=== PATIENT | male | born 2005 | race Two or more races ===

== ENCOUNTER 2025-02-07 09:05 | Day surgery (SDC) | payer MEDICAID, SELFPAY ==
--- NOTE | 2025-02-04 06:26 | EKG_ITS ---
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
[2025-02-04 08:24] VITALS: BMI 33.3
[2025-02-04 09:29] LABS: Basophils # (Auto) 0.1 Thou/mm3 (0.0-0.2); Basophils % (Auto) 1 % (0-2.5); Eosinophils # (Auto) 0.4 Thou/mm3 (0.0-0.5); Eosinophils % (Auto) 4 % (0-10); Hematocrit 33.8 % (41.0-53.0); Hemoglobin 11.4 g/dL (13.5-16.0); Immature Granulocytes % (Auto) 0 % (0-0); Immature Granulocytes Auto 0.01 Thou/mm3 (0.00-0.00); Lymphocytes # (Auto) 2.7 Thou/mm3 (1.0-4.8); Lymphocytes % (Auto) 27 % (10-50); Mean Corpuscular HGB Conc 33.7 g/dl (31.0-37.0); Mean Corpuscular Hemoglobin 30.3 pg (25.0-35.0); Mean Corpuscular Volume 90 fL (80-100); Monocytes # (Auto) 0.5 Thou/mm3 (0.0-0.8); Monocytes % (Auto) 5 % (0-12); Neutrophils # (Auto) 6.2 Thou/mm3 (1.8-7.7); Neutrophils % (Auto) 63 % (37-80); Nucleated Red Blood Cell % 0 /100 WBC (0); Platelet Count 203 Thou/mm3 (140-440); RDW Standard Deviation 43.7 fL (35.1-43.9); Red Blood Count 3.76 Miln/mm3 (4.50-5.90); White Blood Count 9.9 Thou/mm3 (4.5-11.0)
[2025-02-04 09:40] LABS: Partial Thromboplastin Time 29.5 Seconds (22.0-36.0); Prothrombin Time 10.7 Seconds (9.0-12.2)
[2025-02-04 09:52] LABS: Alanine Aminotransferase 7 U/L (10-49); Albumin, Serum 4.4 gm/dL (3.5-5.0); Albumin/Globulin Ratio 1.3 (1.2-2.2); Alkaline Phosphatase 71 U/L (46-116); Anion Gap 15 (7-16); Aspartate Amino Transferase < 10 U/L (0-34); BUN/Creatinine Ratio 3 Ratio (12-20); Bilirubin,Total 0.3 mg/dL (0.3-1.2); Blood Urea Nitrogen 47 mg/dL (9-23); Calcium 8.8 mg/dL (8.3-10.6); Calcium (Corrected) 8.8 mg/dL (8.5-10.1); Carbon Dioxide 24.3 mMol/L (20.0-31.0); Chloride 100 mMol/L (98-107); Estimated Creatinine Clearance 7.5 mL/min (>60); Globulin 3.3 gm/dL (2.3-3.5); Glucose 91 mg/dL (74-106); Osmolality,Calculated 289 (275-295); Potassium 3.9 mMol/L (3.4-5.1); Sodium 139 mMol/L (136-145); Total Protein 7.7 gm/dL (5.7-8.2); eGFR 4 See Note
[2025-02-04 09:59] LABS: Creatinine (Component) 14.6 mg/dL (0.6-1.3)
[2025-02-07] VITALS (8 sets, daily range): BP systolic 112–175; BP diastolic 50–113; PULSE 72–84; RESP 13–18; TEMP 36.5–36.9; O2SAT 98–100; BMI 32.5
[2025-02-07 10:34] LABS: Potassium 3.9 mMol/L (3.4-5.1)
--- NOTE | 2025-02-07 12:52 | ESOP_ITS ---
Date of Procedure 02/07/25 Pre Op Diagnosis end-stage renal disease Post Op Diagnosis Same as preop diagnosis Procedure Creation of arteriovenous fistula between the median cubital vein and the brachial artery Findings Excellent flow in the fistula Procedure Description With the patient in the supine position under under adequate general anesthesia the left upper extremity was sterilely prepped and draped. A timeout was performed. With the venous tourniquet in place ultrasound was used to evaluate suitability of the cephalic vein and brachial artery. The brachial artery was somewhat small but free of disease and the cephalic vein was over 3.2 mm in diameter. At this point oblique incision was then made on the volar aspect of the antecubital fossa and the subcutaneous tissues were dissected with electrocautery. The median cubital vein was dissected free from surrounding tissues, ligated distally and mobilized. The dissection was then deepened through the bicipital aponeurosis to expose the brachial artery. The brachial artery was crossclamped proximally and distally along trial arteriolitis made and stay sutures were placed. The vein was then mobilized and brought into apposition to the artery and sewn to it with a combination of interrupted and running 7-0 Prolene sutures. Before completion the artery was 4 flushed and back flushed as was the vein and the anastomotic area was copiously irrigated with heparin saline and the anastomosis was completed and flow was established. There was strong palpable thrill in the fistula. Hemostasis was obtained and the wound and the wound was closed in layers with 0 Vicryl the subcutaneous tissues and 4 Monocryl subcuticular skin closure. Dermabond dressing was appli ed. Patient woke well from anesthesia was moved to recovery in stable condition. Anesthesia other (Laryngeal mask anesthesia) Implants None Pathology / specimen None Estimated Blood Loss 30 Condition Stable Disposition PACU Surgeon Jose Conte MD Surgical Staff Operation Date: 02/07/25 12:30 Case Staff Anesthesiologist: Justen Cerna RN First Assistant: Shantal Graham
== END 2025-02-07 14:15 | disposition home or self-care (01) ==
PROVIDERS: Anesthesiology; PCP Internal Medicine; Referring Provider Surgery Vascular Surgery; Visit Provider Surgery Vascular Surgery
PROC: (CPT 36825; principal; 2025-02-07 12:15)
DX: N18.6 End stage renal disease (principal); I77.0 Arteriovenous fistula, acquired; Z01.810 Encounter for preprocedural cardiovascular examination; I12.0 Hypertensive chronic kidney disease with stage 5 chronic kidney disease or end stage renal disease
CPT/HCPCS: 36821; 36415; 80053; 84132; 85025; 85610; 85730; 93005; A4217; A4649; J0690; J1100; J1644; J2250; J2371; J2405; J2704; J3010; J3490; J0665

== ENCOUNTER → 2025-06-14 | Outpatient (CLI) | payer MEDICAID, SELFPAY ==
--- NOTE | 2025-06-14 | XR_ITS ---
Examination: PA lateral chest 2 views TECHNIQUE: Upright PA lateral chest 2 views Date and time: June 14, 2025 1315 hours INDICATIONS: Clinical diagnosis of tuberculosis. FINDINGS: Normal heart size Left internal jugular dialysis catheter tip right atrium No pneumonia or pulmonary edema IMPRESSION: No active disease. No radiographic findings of tuberculosis
== END | disposition home or self-care (01) ==
LOC: CDIM 12:31
PROVIDERS: PCP Internal Medicine; Referring Provider Internal Medicine; Visit Provider Internal Medicine
DX: N18.6 End stage renal disease (principal)
CPT/HCPCS: 71046